=== PATIENT | female | born 2000 | race Caucasian/White ===

== ENCOUNTER 2022-06-02 11:59 | Outpatient (REF) | payer OTHER, SELFPAY ==
[2022-06-02 14:13] LABS: Free T4 Free Thyroxine* 0.76 ng/dL (0.70-1.85)
== END 2022-06-02 12:00 | disposition home or self-care (01) ==
LOC: NPINS 11:59
DX: E05.00 Thyrotoxicosis with diffuse goiter without thyrotoxic crisis or storm (principal)
CPT/HCPCS: 84439; 84443

== ENCOUNTER 2022-09-28 13:08 | Outpatient (REF) | payer OTHER, SELFPAY ==
[2022-09-28 14:35] LABS: Cholesterol* 192 mg/dL (90-199); HDL Cholesterol* 95 mg/dL (>=50); LDL Cholesterol Calculated 86 mg/dL (<100); Triglycerides* 57 mg/dL (40-149)
== END 2022-09-28 13:09 | disposition home or self-care (01) ==
LOC: NPINS 13:08
PROVIDERS: PCP Internal Medicine Endocrinology, Diabetes & Metabolism; Visit Provider Internal Medicine Endocrinology, Diabetes & Metabolism
DX: E05.00 Thyrotoxicosis with diffuse goiter without thyrotoxic crisis or storm (principal); E10.9 Type 1 diabetes mellitus without complications
CPT/HCPCS: 80061; 84443

== ENCOUNTER 2024-01-09 15:25 | Outpatient (REF) | payer OTHER, SELFPAY ==
--- OUTSIDE RECORDS SUMMARY | 2024-01-09 15:32 | XMS_ITS | Encounter Summary ---
Author Name Unknown Organization [facility] Address [address] [place] [address] Care Team Providers Care Cushion Spring Assembler Name Role Phone Manjit Dillard MD Primary Care Provider [phone] Encounter Details Date Type Department Care Team (Late st Contact Info) Description 11/01/2006 Abstract [facility] [address] [place] [address] Chw Historical, Provider [address] [place] [id number] Social History Tobacco Use Types Packs/Day Years Used Date Smoking Tobacco: Never Assessed Sex and Gender Information Value Date Recorded Sex Assigned at Not on file Gender Identity Not on file Sexual Orientation Not on file documented as of this encounter Last Filed Vital Signs Vital Sign Reading Time Taken Comments Blood Pressure - - Pulse - - Temperature - - Respiratory Rate - - Oxygen Saturation - - Inhaled Oxygen Concentration - - Weight 18.2 kg (40 lb 2 oz) 11/01/2006 11:30 AM PETS SALESPERSON Height 91.8 cm (3' 0.14) 11/30/2004 10:09 AM CS T Body Mass Index 15.78 11/30/2004 10:09 AM PETS SALESPERSON Body Mass Index Percentile 55.39% 11/30/2004 10: 09 AM PETS SALESPERSON Growth Chart: CDC (Girls, 2- 20 Years) documented in this encounter Plan of Treatment Not on file documented as of this encounter Visit Diagnoses Not on filedocumented in this encounter Care Teams Cushion Spring Assembler Relationship Specialty Start Date End Date Manjit Dillard MD [address] [facility] [address] [place] [address] PCP - General 05/20/12 documented as of this encounter
--- OUTSIDE RECORDS SUMMARY | 2024-01-09 15:32 | XMS_ITS | Referral Summary ---
Author Name Unknown Organization [facility] Address [address] [place] [address] Care Team Providers Care Hyperbaric Tech Name Role Phone Manjit Dillard MD Primary Care Provider [phone] Allergies No known active allergies Medications No known medications Social History Tobacco Use Types Packs/Day Years Used Date Smoking Tobacco: Never Assessed Sex and Gender Information Value Date Recorded Sex Assigned at Not on file Gender Identity Not on file Sexual Orientation Not on file Last Filed Vital Signs Vital Sign Reading Time Taken Comments Blood Pressure 145/68 2012 10:34 PM SOCIAL MEDIA COORDINATOR Pulse 86 2012 10:34 PM SOCIAL MEDIA COORDINATOR Temperature 36.9 ??C (98.4 ??F) 2012 10:[address] Respiratory Rate 16 2012 10:34 PM SOCIAL MEDIA COORDINATOR Oxygen Saturation - - Inhaled Oxygen Concentration - - Weight 35.9 kg (79 lb 2.3 oz) 2012 10:34 P M SOCIAL MEDIA COORDINATOR Height 139 cm (4' 6.72) 2012 10:34 PM SOCIAL MEDIA COORDINATOR Body Mass Index 18.58 2012 10:34 PM SOCIAL MEDIA COORDINATOR Plan of Treatment Not on file Care Teams Hyperbaric Tech Relationship Specialty Start Date End Date Manjit Dillard MD [address] [facility] 2[facility] [place] [address] PCP - General 05/20/12
--- OUTSIDE RECORDS SUMMARY | 2024-01-09 15:32 | XMS_ITS | Clinical Summary ---
Author Name Unknown Organization [facility] Address [address] [place] [address] Care Team Providers Care K 12 Principal Name Role Phone Manjit Dillard MD Primary [...] Comments Blood Pressure 145/68 2012 10:34 PM TRANSIT DRIVER Pulse 86 2012 10:34 PM TRANSIT DRIVER Temperature 36.9 ??C (98.4 ??F) 2012 10:[address] Respiratory Rate 16 2012 10:34 PM TRANSIT DRIVER Oxygen Saturation - - Inhaled Oxygen Concentration - - Weight 35.9 kg (79 lb 2.3 oz) 2012 10:34 P M TRANSIT DRIVER Height 139 cm (4' 6.72) 2012 10:34 PM TRANSIT DRIVER Body Mass Index 18.58 2012 10:34 PM TRANSIT DRIVER Plan of Treatment Not on file Care Teams K 12 Principal Relationship Specialty Start Date End Date Manjit Dillard MD [address] [facility] [address] [place] [address] PCP - General 05/20/12
[2024-01-09 16:32] LABS: TSH With Reflex to FT4* < 0.015 uIU/mL (0.270-4.200)
[2024-01-09 17:34] LABS: Free T4 Free Thyroxine* > 6.99 ng/dL (0.70-1.85)
== END 2024-01-09 15:26 | disposition home or self-care (01) ==
LOC: NPINS 15:25
PROVIDERS: PCP Internal Medicine Endocrinology, Diabetes & Metabolism; Visit Provider Physician Assistant
DX: E05.00 Thyrotoxicosis with diffuse goiter without thyrotoxic crisis or storm (principal)
CPT/HCPCS: 84439; 84443